=== PATIENT | male | born 1950 | race Caucasian/White ===

== ENCOUNTER 2022-01-04 09:48 | Inpatient (IN) | payer MEDICARE, OTHER ==
[~2022-01-04] VITALS: Ht 165.1 cm; Wt 72.7 kg
[2022-01-04 10:11] LABS: BASOPHILS ABSOLUTE AUTO 0.04 K/mm3 (0.00-0.23); BASOPHILS PERCENT AUTO 0 % (0-2); EOSINOPHILS ABSOLUTE AUTO 0.44 K/mm3 (0.00-0.68); EOSINOPHILS PERCENT AUTO 3 % (0-6); Hematocrit 36.1 % (37.0-53.0); Hemoglobin 12.8 g/dL (13.5-17.5); IMMATURE GRAN PERCENT AUTO 1 % (0-1); LYMPHOCYTES ABSOLUTE AUTO 1.78 K/mm3 (0.84-5.20); LYMPHOCYTES PERCENT AUTO 13 % (21-46); MONOCYTES ABSOLUTE AUTO 1.22 K/mm3 (0.16-1.47); MONOCYTES PERCENT AUTO 9 % (4-13); Mean Corpuscular HGB 33.6 pg (26.0-34.0); Mean Corpuscular HGB Conc 35.5 g/dL (31.5-36.5); Mean Corpuscular Volume 95 fL (80-100); Mean Platelet Volume 8.4 fL (9.1-12.4); NEUTROPHILS ABSOLUTE AUTO 10.51 K/mm3 (1.96-9.15); NEUTROPHILS PERCENT AUTO 75 % (41-73); Platelet Count 352 K/mm3 (150-400); RDW Coefficient Variation 13.2 % (11.7-14.2); RDW Standard Deviation 45.2 fL (35.1-46.3); Red Blood Cell Count 3.81 M/mm3 (4.30-5.90); White Blood Cell Count 14.09 K/mm3 (4.00-11.30)
[2022-01-04 10:20] LABS: PCO2 Arterial 35.6 mmHg (35-45); PO2 Arterial 80.9 mmHg (80-100); pH Blood Arterial 7.46 (7.35-7.45)
[2022-01-04] MEDS ORDERED: ATORVASTATIN CA20 MG PO (10:25)
[2022-01-04] MEDS ORDERED: PAXIL PO (10:25)
[2022-01-04] MEDS ORDERED: ROPINIROLE HCL1 MG PO (10:26)
[2022-01-04] MEDS ORDERED: OMEP20ER PO (10:26)
[2022-01-04 10:28] LABS: Bun/Creatinine Ratio 17.1 (12.0-20.0); Calcium, Blood 8.7 mg/dL (8.5-10.1); Creatinine, Blood 0.88 mg/dL (0.60-1.20); Potassium, Blood 3.7 mmol/L (3.5-5.5)
[2022-01-04 11:07] LABS: Influenza A, PCR NEGATIVE (NEGATIVE); Influenza B, PCR NEGATIVE (NEGATIVE); Resp Syncytial Virus, PCR NEGATIVE (NEGATIVE); SARS-Cov-2 (COVID-19) PCR, MMC NEGATIVE (NEGATIVE)
--- NOTE | 2022-01-04 17:19 | NUR ---
SHIFT SUMMARY: PATIENT A&OX4. PLEASANT AND COOPERATIVE WITH CARE. DENIES CP/CHEST DISCOMFORT. LUNGS WHEZEES T/O. SOB AND DESATS WITH ACTIVITIES. ON O2 8L VIA OXYMIZER WITH SPO2 ABOVE 90%. USES URINAL IN BED INDEPENDENTLY. SKIN INTACT. INFUSING NS AT 150. USES CALL LIGHT APPROPRIATELY. VITAL SIGNS REVIEWED. BED IN LOWEST POSITION, LOCKED AND CALL LIGHT WITHIN REACH.
[2022-01-05 04:24] LABS: PCO2 Arterial 32.1 mmHg (35-45); PO2 Arterial 76.5 mmHg (80-100); pH Blood Arterial 7.44 (7.35-7.45)
[2022-01-05 05:05] LABS: Hematocrit 30.8 % (37.0-53.0); Hemoglobin 10.9 g/dL (13.5-17.5); Mean Corpuscular HGB 34.8 pg (26.0-34.0); Mean Corpuscular HGB Conc 35.4 g/dL (31.5-36.5); Mean Corpuscular Volume 98 fL (80-100); Mean Platelet Volume 8.6 fL (9.1-12.4); Platelet Count 259 K/mm3 (150-400); RDW Coefficient Variation 13.2 % (11.7-14.2); RDW Standard Deviation 45.9 fL (35.1-46.3); Red Blood Cell Count 3.13 M/mm3 (4.30-5.90); White Blood Cell Count 17.25 K/mm3 (4.00-11.30)
--- NOTE | 2022-01-05 05:43 | NUR ---
SHIFT SUMMARY PATIENT IS ALERT AND ORIENTED. PATIENT STARTED SHIFT ON NONREBREATHER 11L. PATIENT HAS PROGRESSIVELY NEEDED ADDITIONAL OXYGEN. PATIENT IS CURRENTLY ON AIRVO 80 PERCENT, 60 LITERS, SATTING 88-92. THIS RN AND RT HAS BEEN WITH PATIENT MOST OF SHIFT. VITAL SIGNS REVIEWED. PATIENT HAS NOT COMPLAINED OF PAIN, NAUSEA OR VOMITTING. PATIENT HAS COMPLAINED OF SOB. BED IN LOWEST AND LOCKED POSITON. CALL LIGHT IN PLACE. WILL MONITOR UNTIL SHIFT CHANGE.
--- NOTE | 2022-01-05 08:05 | NUR ---
PATIENT TRANSFERRED TO PCU 14, REPORT CALLED BY SECUR[facility]PER[facility] ANALYST NURSE. TRANSFERRED WITH HIGH FLOW 02 AND 15L ON A NRB, SATS REMAINED >90% DURING TRANSFER. BEDSIDE NURSE RODNEY DENIES ANY FURTHER QUESTIONS. BELONGINGS SENT WITH PATIENT.
[2022-01-05 17:09] LABS: Source, Urine Foley catheter
[2022-01-05 17:28] LABS: Appearance, Urine Hazy (Clear); Bilirubin, Urine Neg (Neg); Blood, Urine 2+ (Neg); Color, Urine Yellow (P-Yellow); Glucose Qualitative, Urine Neg (Neg); Ketones, Urine Neg (Neg); Leukocyte Esterase, Urine Neg (Neg); Nitrite, Urine Neg (Neg); Protein, Urine 2+ (Neg); Urobilinogen, Urine NORM (Normal)
--- NOTE | 2022-01-05 18:04 | NUR ---
PT SUMMARY: PT WAS TRANSFERRED FROM THE [facility] AFTER SHIFT CHANGE PT ARRIVED WITH MAX OUT HIFLO REGULAR NASAL CANNULA AND NON REBREATHER MASK ON TOP PT IS ALERT AND ORIENTED X4 VITALS HRR SR 80'S SATS 90-92% ON AIRVO SETTINGS 50L 85%FIO2, RESPIRATORY THERAPIST SET UP THE NONREBREATHER MASK AT BEDSIDE FOR PT TO USE FOR RECOVERY IF PT GETS SHORT OF BREATH AND STARTS DESATTING. PT HAS BEEN CONTINENT USES URINAL FOR VOIDING, PT HAD MULTIPLE EPISODES OF DESATTING TO LOW 80'S WITH EXERTION LIKE USING THE URINAL, COUGHING SPITS OR EATING, PT WAS INSTRUCTED TO PUT ON NON REBREATHER MASK BEFORE USING URINAL AND PT WAS COMPLIANT STILL WILL DESAT TO 87%, PT WAS ALSO GIVEN COUGH MEDICINE AND WAS HELPFUL PER PT. AT AROUND 1700 PT DESATS TO 57-60% AFTER USING THE URINAL PT HAS THE NON REBREATHER MASK ON, ON TOP OF THE AIRVO, AIRVO WAS MAXED OUT TO 100% RT WAS CALLED PT WAS TAKING LONGER TO RECOVER WAS NOT ABLE TO CATCH HIS BREATH. RT MAXED OUT NON REBREATHER AND AIRVO SETTINGS. DR COOL WAS CALLED ORDER RECEIVED TO PLACE SOTELO, CONSULT LITIGATION MANAGER AND INTESIVIST TO TRANSFER PT TO ICU. D DIMER ALSO WAS DRAWN CAME BACK ELEVATED. DR HUGHES IN THE PT'S ROOM AT THIS TIME EVALUATING THE PT. WILL GIVE REPORT TO ICU NURSE WHEN PT IS TRANSPORTED.
[2022-01-05 18:32] LABS: Bacteria Few /hpf; Squamous Epithelial Cells Rare /hpf (Few); White Blood Cells, Urine 0-2 /hpf (0-5)
[2022-01-05 18:33] LABS: Hyaline Casts 0-2 /lpf (0-2); Mucus Light (0-Heavy)
--- NOTE | 2022-01-05 19:00 | NUR ---
TRANSPORT TO CT AND ICU PT TRANSPORTED TO CT AT 1900 WITH THIS RN, TAYLOR PCT, AND ADDIE RT. PT TOLERATED WELL. PT ON BIPAP 28/10 WITH FIO2 65%. RR 30S-40S, SPO2 >93%. PT EXPRESSES FEELING SHORT OF BREATH BUT STS IT IS IMPROVING AND HE ALWAYS "FEELS A LITTLE SHORT OF BREATH". BILATERAL UPPER LOBES CLEAR, RLL CLEAR, LLL COARSE. NSR ON MONITOR WITH RATE IN 80S. BP STABLE WITH MAP >65 AND PT HAS STRONG PULSES. ABDOMEN SOFT, BOWEL TONES HYPOACTIVE. DENIES DISCOMFORT WITH PALPATION. SOTELO PATENT AND DRAINING URINE TO GRAVITY. PT APPEARS PALE, CLAMMY SKIN. TEMPORAL TEMP 99.2. PT DENIES PAIN AT THIS TIME. CALL LIGHT AND CELL PHONE WITHIN REACH. SEE SHIFT ASSESSMENT.
[2022-01-06 04:11] LABS: BASOPHILS ABSOLUTE AUTO 0.03 K/mm3 (0.00-0.23); BASOPHILS PERCENT AUTO 0 % (0-2); EOSINOPHILS PERCENT AUTO 1 % (0-6); Hemoglobin 10.9 g/dL (13.5-17.5); IMMATURE GRAN ABSOLUTE AUTO 0.09 K/mm3 (0.00-0.10); IMMATURE GRAN PERCENT AUTO 1 % (0-1); LYMPHOCYTES ABSOLUTE AUTO 1.52 K/mm3 (0.84-5.20); LYMPHOCYTES PERCENT AUTO 9 % (21-46); MONOCYTES PERCENT AUTO 6 % (4-13); Mean Corpuscular HGB 33.9 pg (26.0-34.0); Mean Corpuscular HGB Conc 35.2 g/dL (31.5-36.5); Mean Corpuscular Volume 96 fL (80-100); Mean Platelet Volume 9.2 fL (9.1-12.4); NEUTROPHILS ABSOLUTE AUTO 13.66 K/mm3 (1.96-9.15); NEUTROPHILS PERCENT AUTO 83 % (41-73); Platelet Count 236 K/mm3 (150-400); RDW Standard Deviation 44.9 fL (35.1-46.3); Red Blood Cell Count 3.22 M/mm3 (4.30-5.90)
[2022-01-06 04:30] LABS: Bun/Creatinine Ratio 22.1 (12.0-20.0); Calcium, Blood 7.9 mg/dL (8.5-10.1); Creatinine, Blood 0.68 mg/dL (0.60-1.20); Magnesium, Blood 2.5 mg/dL (1.6-2.4); Phosphorus, Blood 2.4 mg/dL (2.5-4.9); Potassium, Blood 3.9 mmol/L (3.5-5.5)
--- NOTE | 2022-01-06 06:16 | NUR ---
SHIFT SUMMARY PT REMAINS ON BIPAP 28/10 WITH 65% FIO2. RR FLUCTUATES BETWEEN 20S-40S. PT CONTINUES TO FEEL SLIGHTLY SOB BUT STS IT HAS IMPROVED. SPO2 >94%. PT BECOMES MORE DYSPNEIC DURING PROLONGED CONVERSATION AND ACTIVITY. SOTELO PATENT AND DRAINING KELL URINE TO GRAVITY WITH SHIFT OUTPUT OF 850ML. VSS THROUGHOUT SHIFT. WILL REPORT TO ONCOMING RN.
--- NOTE | 2022-01-06 10:40 | NUR ---
Pt. is awake in bed and welcomes my visit. Pt. had just had visit from his spouse and their spinner cap frame. Pt. is pleasant, but unsettled by the progressive nature of his lung disease. Listen empathetically with a calming presence. Pt. displayed evidence of being very alert and engaged. Ptl is a man of veronica, and we prayed together. Pt. verbalized gratitude for the spiritual care visit. Will remain available to Pt. and family.
--- NOTE | 2022-01-06 12:28 | NUR ---
REASSESSMENT PT HAS BEEN RESTING IN BED THROUGHOUT THE MORNING. SWITCHED PT TO HI FLOW NC THIS MORNING AND HE HAS TOLERATED IT WELL AND REMAINS ON IT. LUNGS ARE CLEAR, BUT VERY DIM. NON PRODUCTIVE COUGH. SINUS TACH IN THE LOW 100S, BP STABLE. PT DOESN'T HAVE MUCH OF AN APPETITE BUT WAS ABLE TO DRINK AN ENSURE AND SOME MILK. HIS WORK OF BREATHING INCREASES A BIT WITH DRINKING, BUT PT IS VERY GOOD ABOUT GOING SLOW AND TAKING HIS TIME. SOTELO DRAINING DARK YELLOW URINE, CLEAR. CONTINUING TO MONITOR.
--- NOTE | 2022-01-06 16:46 | NUR ---
SHIFT SUMMARY PT HAS CONTINUED REQUIRING HIGH AMOUNTS OF OXYGEN. HE TOLERATED THE HIGH FLOW NC WITH 60L AND 75% UNTIL ABOUT 1400 THIS SHIFT. HE THEN STARTED DESATURATING TO THE 70S WITH MINIMAL MOVEMENT AND COUGHING SPELLS. PT SWITCHED BACK TO BIPAP 14/7 AND 70% FIO2 WITH SPO2 CURRENTLY AT 91%. RR REMAINS IN THE 30S AND 40S IT HAS BEEN THROUGHOUT THE SHIFT. HIS LUNGS REMAIN CLEAR BUT VERY DIM. ALERT AND ORIENTED. SR, BP STABLE. SOTELO WITH 350ML OF DARK YELLOW URINE. STILL MINIMAL APPETITE. PT IS MOVING HIMSELF AROUND IN BED/ CONTINUING TO MONITOR.
--- NOTE | 2022-01-06 19:16 | NUR ---
ASSESSMENT/ASSUMED CARE PT SITTING UP IN BED WATCHING TV WITH HIFLOW NC ON. PT A&O. FOLLOWING INSTRUCTIONS. C/O PAIN 6/10 TO LEFT LUNG WITH DEEP BREATHS AND COUGHING. WILL CHECK ON PAIN MEDS. LUNGS DECREASED WITH EXP WHEEZES. HIFLOW O2 60 LITERS 85%. RESP 24-26. LABORED WITH MOVEMENT, DEEP BREATHING AND COUGHING. SPO2 94%, BUT DECREASES TO 89-90% WITH MOVEMENT. DOES RECOVER WITH REST. PRODUCTIVE COUGH WITH THICK/FROTHY YELLOW/WHITE SPUTUM, SAMPLE SENT TO LAB. HEART RATE SINUS 80-100'S WITH BBB. BP STABLE. NO EDEMA. MAEW. BT+ ABD SOFT AND NONTENDER. DENIES CHEST PAIN/PRESSURE OR N/V. IV TO LEFT AC LEAKING WHEN FLUSHED. DC'D INTACT. ERMIAS VINCENT TO PLACE NEW IV. SOTELO CATH PATENT DRAINING KELL/YELLOW URINE SMALL AMTS. RT TO BEDSIDE FOR UDN TX.
--- NOTE | 2022-01-06 20:05 | NUR ---
PAIN PT MED WITH TYLENOL FOR PAIN 6/10 TO LEFT LUNG.
--- NOTE | 2022-01-06 20:55 | NUR ---
REASSESSMENT AFTER PAIN MED PT SITTING UP IN BED, STATES,"THE TYLENOL REALLY HELPED. PAIN 05/27". SOTELO CATH AND HS CARE DONE. SOFIA UNDER PT CHANGED AND PT BOOSTED IN BED. TURNED TO LEFT WITH HOB UP. SPO2 DOWN TO 85% WITH MOVMENT BUT BACK TO TO 94% WITHIN MOMENTS WITH REST.
--- NOTE | 2022-01-06 23:30 | NUR ---
REASSESSMENT RT GAVE UDN TX VIA AIRVO. PT RESTING QUIETLY. RESP RATE 20-22. LUNGS CLEAR BUT DECREASED. PT STATES,"PAIN IS 2/10. THE TYLENOL SEEMED TO WORK. MY BREATHING FEELS BETTER ALSO". REPOSITIONED. URINE OUTPUT 100 ML DARK KELL/YELLOW URINE SINCE START OF NIGHT. 1200 ML OUT ON DAY SHIFT, WILL CONT TO MONITOR.
[2022-01-07 03:30] LABS: BASOPHILS ABSOLUTE AUTO 0.03 K/mm3 (0.00-0.23); BASOPHILS PERCENT AUTO 0 % (0-2); EOSINOPHILS ABSOLUTE AUTO 0.45 K/mm3 (0.00-0.68); EOSINOPHILS PERCENT AUTO 3 % (0-6); Hematocrit 30.4 % (37.0-53.0); Hemoglobin 10.5 g/dL (13.5-17.5); IMMATURE GRAN ABSOLUTE AUTO 0.08 K/mm3 (0.00-0.10); IMMATURE GRAN PERCENT AUTO 1 % (0-1); LYMPHOCYTES ABSOLUTE AUTO 1.19 K/mm3 (0.84-5.20); LYMPHOCYTES PERCENT AUTO 7 % (21-46); MONOCYTES ABSOLUTE AUTO 0.79 K/mm3 (0.16-1.47); MONOCYTES PERCENT AUTO 5 % (4-13); Mean Corpuscular HGB 32.1 pg (26.0-34.0); Mean Corpuscular HGB Conc 34.5 g/dL (31.5-36.5); Mean Corpuscular Volume 93 fL (80-100); Mean Platelet Volume 8.6 fL (9.1-12.4); NEUTROPHILS ABSOLUTE AUTO 14.66 K/mm3 (1.96-9.15); NEUTROPHILS PERCENT AUTO 85 % (41-73); Platelet Count 207 K/mm3 (150-400); RDW Coefficient Variation 12.9 % (11.7-14.2); RDW Standard Deviation 44.2 fL (35.1-46.3); Red Blood Cell Count 3.27 M/mm3 (4.30-5.90)
[2022-01-07 03:48] LABS: Albumin, Blood 2.1 g/dL (3.4-5.0); Albumin/Globulin Ratio 0.5 (0.8-1.8); Bilirubin, Total 0.7 mg/dL (0.1-1.0); Bun/Creatinine Ratio 32.1 (12.0-20.0); Calcium, Blood 7.7 mg/dL (8.5-10.1); Creatinine, Blood 0.56 mg/dL (0.60-1.20); Potassium, Blood 3.7 mmol/L (3.5-5.5); Total Protein, Blood 6.1 g/dL (6.4-8.2)
--- NOTE | 2022-01-07 05:54 | NUR ---
SHIFT SUMMARY PT RESTING QUIELTY. MED WITH TYLENOL ONCE DURING THE NIGHT FOR C/O PAIN TO LEFT LUNG WITH GOOD RESULTS. PT HAS BEEN SINUS RHYTHM WITH BBB. HEART RATE 80-100'S. BP STABLE. ON AIRVO AT 60 LITERS 85% UNITL 0030 WHEN PT WENT TO SLEEP AND HIS SPO2 DROPPE DOWN TO 88-89% AND RESP RATE INCREASED TO 30'S. PLACED ON BIPAP 14/7 RATE 14 FIO2 85%. SPO2 HAS REMAINED 94-96% ON BIPAP. POOR URINE OUTPUT DURING THE NIGHT 350ML DARK KELL/YELLOW URINE. PT TURNED Q2HRS. ASSISTING WITH TURNING. NEW IV 20G TO RIGHT AC PLACED. REPORT TO ON COMING NURSE
--- NOTE | 2022-01-07 07:10 | NUR ---
TOOK OVER CARE OF PT AT 0700, PT RESTING ON RA.
--- NOTE | 2022-01-07 07:11 | NUR ---
TOOK OVER CARE OF PT AT 0705. PT RESTING ON BIPAP14/7 85%, RR AT 35, SATS 96%.
--- NOTE | 2022-01-07 10:58 | NUR ---
Pt, is awake in bed and welcmoes my visit. Pt. is pleasant and verbalizes no concerns about his care. Pt. displays evidence of being a man of veronica, so matters of veronica, belief, and hope are discussed, and rapport is re-established. Pt. displays evidence of hope and peace. Prayed with Pt. Pt. verbalized gratitude for the spiritual care visit.
--- NOTE | 2022-01-07 14:21 | NUR ---
Spiritual Care. Escorted Pts. to the Pts. room. Re-established rapport with Pt. Pt. verbalized gratitude for the spiritual care visit.
--- NOTE | 2022-01-07 18:00 | NUR ---
SUMMARY NERUO; WNL CARDIAC: PT BEGAN SHIFT WITH A HR IN THE 80'-90'S, PT NOW 100'S-115'S. BP STABLE. PT COMPLAINING OF CP DURING EPISODES OF LOW SATURATIONS. GI: NO BM. : SOTELO IN PLACE. 450ML OUT THIS SHIFT. LUNGS: PT ON AIRVO 60L 85%. PT DESATTING WITH A SINGLE COUGH INTO THE 70'S AND TAKING UPWARDS OF FIVE MINUTED TO REACH 80%. ONCE IN THE 80'S PT REBOUNDS QUICKER. STEROIDS STARTED TODAY. LUNGS DIMINISHED BUT CLEAR. SPUTUM CULTURE CAME BACK POSITIVE. PT'S UPDATED ON CONDITION AND THEN CAME IN TO VISIT PT TODAY.
--- NOTE | 2022-01-07 19:34 | NUR ---
ASSUMED CARE. RECEIVED BEDSIDE REPORT. PT TACHYPNIC IN THE 30'S, DESATS WITH COVERSATION. ELBA RN RECAPPED DAYS COVERSATIONS REVIEWING THE PATIENTS REQUEST TO NOT BE INTUBATED AND THE CONCERNS OF HIS CONDITION. WE DISCUSSED USING BIPAP AND POSSIBLY GETTING SOME MEDS TO WHERE HE MIGHT TOLERATE IT BETTER. HR IS TACHY IN THE 110-120'S, SATS CONTINUE TO DROPS TO LOW 80'S. STATES LEFT SIDE PAIN STABBING TENDS TO INCREASE WITH DESATING. ASK FOR MORPHINE. ELBA DISCUSSED WITH PATIENT THAT SHE SPOKE TO HIS WELL ABOUT CONCERNS OF HIS HEART TIREING OUT. RT IS CURRENTLY IN THE ROOM WORKING WITH THE PATIENT ON BIPAP. SPOKE TO DR. GREEN REGARDING CONCERNS OF RECENT VITAL CHANGES, PAIN. ORDERS RECEIVED.
--- NOTE | 2022-01-07 21:51 | NUR ---
PT TOLERATING BIPAP WITH MORPHINE ON BOARD. PAIN IS 2/10. HIS ANXIETY HAS IMPROVED WITH WEARING IT SO FAR. WHEN ADMINISTERING MEDS HAD TO REMOVE BIPAP ONLY LONG ENOUGH FOR HIM TO TAKE 3 DRINKS OF WATER. HIS RESP INCREASED INTO THE 40'S, SATS DROPPED TO THE 50'S, AND HE BECAME VERY LABORED IN THAT SHORT PERIOD OF TIME. IT TOOK HIM ONLY A FEW MINUTES WITH BIPAP ON TO GET BACK INTO THE HIGH 80'S. CURRENTLY HE IS RUNNING 95%, ON 90% FIO2 WITH SETTINGS OF 7 OVER 10 ON BIPAP.
--- NOTE | 2022-01-08 00:51 | NUR ---
RT TOOK HIM OFF THE BIPAP TO GIVE HIM A BREAK. PLACED BACK ON AIRVO WITH 85%, SATS HAVE BEEN AVERAGE IN THE 88-89 RANGE. MORPHINE WAS GIVEN FOR PAIN IN THE LEFT SIDE. NOW QTC HAVE BEEN JUMPING UP INTO THE 530'S. HE IS RESTING GOOD.
[2022-01-08 04:34] LABS: BASOPHILS ABSOLUTE AUTO 0.01 K/mm3 (0.00-0.23); BASOPHILS PERCENT AUTO 0 % (0-2); EOSINOPHILS PERCENT AUTO 0 % (0-6); Hematocrit 28.7 % (37.0-53.0); Hemoglobin 9.8 g/dL (13.5-17.5); IMMATURE GRAN ABSOLUTE AUTO 0.09 K/mm3 (0.00-0.10); IMMATURE GRAN PERCENT AUTO 1 % (0-1); LYMPHOCYTES ABSOLUTE AUTO 0.55 K/mm3 (0.84-5.20); LYMPHOCYTES PERCENT AUTO 4 % (21-46); MONOCYTES ABSOLUTE AUTO 0.26 K/mm3 (0.16-1.47); MONOCYTES PERCENT AUTO 2 % (4-13); Mean Corpuscular HGB 32.3 pg (26.0-34.0); Mean Corpuscular HGB Conc 34.1 g/dL (31.5-36.5); Mean Corpuscular Volume 95 fL (80-100); Mean Platelet Volume 9.4 fL (9.1-12.4); NEUTROPHILS ABSOLUTE AUTO 13.38 K/mm3 (1.96-9.15); NEUTROPHILS PERCENT AUTO 94 % (41-73); Platelet Count 195 K/mm3 (150-400); RDW Coefficient Variation 12.7 % (11.7-14.2); RDW Standard Deviation 43.6 fL (35.1-46.3); Red Blood Cell Count 3.03 M/mm3 (4.30-5.90); White Blood Cell Count 14.29 K/mm3 (4.00-11.30)
[2022-01-08 04:53] LABS: Calcium, Blood 7.5 mg/dL (8.5-10.1); Creatinine, Blood 0.64 mg/dL (0.60-1.20); Potassium, Blood 3.9 mmol/L (3.5-5.5)
--- NOTE | 2022-01-08 05:55 | NUR ---
SHIFT SUMMARY: RESPIRTORY STATUS VERY FRAGILE TONIGHT. HE HAS NEEDED BIPAP 90% OF THE TIME WITH RATE 7/10 WITH FIO2 90-100%. BREATHING IS VERY SHALLOW TACHYPENIC IN THE 30-40'S. ITS BEEN DIFFICULT TO MAINTAN SATS ABOVE 90%. ON AVERAGE HE IS 88% WITH BIPAP. HE WAS ONLY ON AIRVO FOR A COUPLE OF HOURS BEFORE HE REQUIRED BIPAP. HE HAS RECEIVED SHORT BREAKS FOR FLUID INTAKE. JUST A FEW MINUTES AGO HE WAS TAKING A DRINK WHEN HE STARTED TO HAVE A COUGHING SPASM. THIS CAUSED HIM TO VOMIT, EVENTUALLY LEADING TO ASPIRATION AND AIRWAY OCCLUTION. SATS DROPPED TO 30'S, HE PASSED OUT FOR A FEW SECONDS BEFORE BEING ABLE TO GET HIS AIRWAY CLEAR AND TAKE BREATHS FROM HIS BIPAP. HE DOES NOT TOLERATE THE BIPAP OR AIRVO TO BE OFF FOR MORE THEN 30 SECONDS WITHOUT A FAST DROP TO THE 70'S. HE IS AWARE OF THE SERIOUSNESS OF HIS CONDITION. TACHYCARDIC MOST OF THE NIGHT IN THE 110-120'S. RECEIVED 500CC BOLUS AND IS ON MAINTANCE FLUIDS AT 75ML/HR. BLOOD PRESSURE WAS SOFT IN THE 90'S-110'S SYSTOLIC. NOW RATE IS THE 80-90'S. HIS QTC CONTINUES TO GO UP TO 530. HE IS STILL COMPENSATING. HYPOACTIVE BT, NO BM. APPETITE IS POOR DUE TO AIR HUNGER. URINE IS DARK WITH 1000CC OUTPUT THIS SHIFT. MORPHINE ORDERED AND 2MG WAS GIVEN TWICE WHICH HAS HELPED. IS SUPPOSE TO BE HERE TODAY, COMFORT CARE SHOULD BE DISCUSSED. HE IS CURRENTLY RUNNING 96% SATS ON BIPAP FIO2 OF 100%. WILL INFORM DAYSHIFT RN.
--- NOTE | 2022-01-08 07:28 | NUR ---
ASSUMPTION OF CARE PT RESTING ON BIPAP 28/10 100%
--- NOTE | 2022-01-08 12:26 | NUR ---
Additional contacts Customer Greeter Lonnie Tolentino [phone] and his , Jordyn Tolentino [phone] are helping pt/ with extra support for pt's . [facility] Care referral received today. EMR reviewed and case conferenced with pt's clinical services specialist before visiting in ICU #10. Pt is 71 year old with recent hx of ILD/Idiopathic pulmonary fibrosis dx in past two years. Pt currently admitted for worsening maricarmen pneumonia, worse on Left, sepsis and hypoxic resp failure. He was resting with eyes closed. He quickly opened eyes once I was at bedside. He is on 100% via airvo currently, dyspnic with short conversation. He reports what he believes is "heart" discomfort from "having to work so hard to breath". He states he is not feeling anxious currently and he verbalizes understanding of extensive conversation he had with Dr Wesley parrish: his chronic lung disease and prognosis. He doesn't have any questions at this time about that. I asked if he had additional family and friends locally that could help support him/. He states his Customer Greeter at [facility], Lonnie Tolentino and his Jordyn are helping and will look after his . I asked if he would like us to try to arrange a visit from his and he stated yes. After clearing with pt's RN, phone calls made to Lonnie and Jordyn. Voice mails left for both requesting a call back regarding having pt's and/or them in for a visit today. Lonnie returned call and stated he would try to get in for a visit this afternoon. He had already planned to visit himself.
--- NOTE | 2022-01-08 13:00 | NUR ---
ASSUMED CARE PT IS ALERT AND ORIENTED X4. COMFORTABLE, BUT HAS 2/10 PLEURAL PAIN; TOLERABLE TO PT. FAMILY AT BEDSIDE.
--- NOTE | 2022-01-08 18:25 | NUR ---
SHIFT SUMMARY PT IS ALERT AND ORIENTED X4. SPO2 >92% ON 60L AND 100% FIO2 AIRVO. PT DESATS WHILE COUGHING AND WILL DESAT DOWN TO THE 80S FOR A WHILE. MAP >65 PT HAD FAMILY IN THE ROOM. HE HAS CHEST PAIN WITH INSPIRATION THAT IS MANAGED WELL BY 2MG MORPHINE. PT HAS POOR APPETITE AND ONLY WANTED "COLD LIQUIDS".
--- NOTE | 2022-01-08 20:35 | NUR ---
ASSUMED CARE. GILMA APPEARS TO BE FEELING BETTER BUT HAS HAD SEVERAL COUGHING SPELLS THAT HAS CAUSED HIS SATS TO DROP IN THE 50'S. RT HAS BEEN WORKING WITH HIM HE DOES NOT LIKE WEARING THE BIPAP. HE CONTINUES TO TALK ABOUT JUST WANTING TO BE COMFORTABLE. JOHN RT AND I DISCUSSED DIFFERENCE BETWEEN COMFORT MEASURES AND NOT. CURRENTLY HE IS ON AIRVO 60L/100% FIO2 AND NON-REBREATHER AT 10-15L FOR RECOVERY WHEN HE HAS COUGHING SPELLS. LS DIMINISHED, DOES GET LABORED AT TIMES. SATS ARE 87-90%. SPOKE WITH DR. GREEN REGARDING PLAN OF CARE AND NEED FOR COUGH SURPRESSANT. PLAN IS TO GIVE ANTIBOTICS TIME TO WORK THEN BY MONDAY OR MONDAY REASSESS SITUATION. REGARDING BIPAP USE, DR. GREEN STATES IT IS UP TO THE PATIENT IF TO USE IT NOT TO PUSH IT DISPITE SATS DROPPING. DISCUSSED THIS WITH GILMA HE AGREED. CALL LIGHT IN REACH.
--- NOTE | 2022-01-08 22:00 | NUR ---
BED BATH GIVEN CAREFULLY. GAVE PHENERGAN WITH CODEINE PRIOR TO PREVENT COUGHING SPELL. THIS HELPED DURING THE BATHING PROCESS AND MOVING AROUND. HE WAS TURNED FROM SIDE TO SIDE JUST TO PUT FRESH LINEN ON. JUST LAYING HIM DOWN FOR A FEW MINUTES HIS SATS DROPPED TO THE 70'S. WITH THE NON-REBREATHER OVER THE AIRVO, IT TOOK 5 MINUTES TO GET HIM BACK ABOVE 90 AND MAINTAINING IT. MEDS WERE GIVEN ONE AT A TIME WITH SMALL SIPS OF WATER. RESTING CURRENTLY.
[2022-01-09 03:28] LABS: BASOPHILS ABSOLUTE AUTO 0.02 K/mm3 (0.00-0.23); BASOPHILS PERCENT AUTO 0 % (0-2); EOSINOPHILS PERCENT AUTO 0 % (0-6); Hematocrit 28.2 % (37.0-53.0); Hemoglobin 9.9 g/dL (13.5-17.5); IMMATURE GRAN PERCENT AUTO 1 % (0-1); LYMPHOCYTES ABSOLUTE AUTO 0.88 K/mm3 (0.84-5.20); LYMPHOCYTES PERCENT AUTO 4 % (21-46); MONOCYTES ABSOLUTE AUTO 0.85 K/mm3 (0.16-1.47); MONOCYTES PERCENT AUTO 4 % (4-13); Mean Corpuscular HGB 32.6 pg (26.0-34.0); Mean Corpuscular HGB Conc 35.1 g/dL (31.5-36.5); Mean Corpuscular Volume 93 fL (80-100); Mean Platelet Volume 9.4 fL (9.1-12.4); NEUTROPHILS ABSOLUTE AUTO 22.22 K/mm3 (1.96-9.15); NEUTROPHILS PERCENT AUTO 92 % (41-73); Platelet Count 211 K/mm3 (150-400); RDW Coefficient Variation 12.8 % (11.7-14.2); RDW Standard Deviation 43.5 fL (35.1-46.3); Red Blood Cell Count 3.04 M/mm3 (4.30-5.90); White Blood Cell Count 24.17 K/mm3 (4.00-11.30)
[2022-01-09 03:51] LABS: Albumin/Globulin Ratio 0.5 (0.8-1.8); Bilirubin, Total 0.3 mg/dL (0.1-1.0); Bun/Creatinine Ratio 26.6 (12.0-20.0); Calcium, Blood 7.8 mg/dL (8.5-10.1); Creatinine, Blood 0.68 mg/dL (0.60-1.20); Potassium, Blood 3.5 mmol/L (3.5-5.5)
--- NOTE | 2022-01-09 06:09 | NUR ---
SHIFT SUMMARY. RESPIRTORY STATUS CONTINUES TO BE FRAGILE. HE HAS MAINTAINED SATS ON AIRVO OF 60L FIO2 100% PLUS NON-REBREATHER OF 15L OVER THE TOP. SATS AVERAGE 87-90 ON AVERAGE. COUGHING SPELLS HAVE DECREASED TONIGHT EVEN THOUGH HE ONLY HAD 1 DOSE OF CODEINE TONIGHT. HE CONTINUES TO DEVELOP CHEST PAIN THAT HAS INCREASED TO A 9/10 FROM THE 6 HE WAS HAVING THE PREVIOUS NIGHTS. LS DIMINISHED. COUGH IS PRODUCTIVE, SUCTION AT BEDSIDE. HE HAS SLEPT WELL MOST OF THE NIGHT UNTIL NOW WHERE HE HAD TO BE PLACED BACK ON THE BIPAP DUE TO A COUGHING SPELL CAUSING THIM TO SPIRAL DOWN TO THE 60'S ON SATS. RT IS CURRENTLY IN THE ROOM WORKING WITH HIM. AWAITING THE CODEINE FROM PHARMACY.
--- NOTE | 2022-01-09 08:06 | NUR ---
CARE OF PT ASSUMED AT 0700, BEDSIDE REPORT TAKEN. PT ON BIPAP W SOME LABORED RESP.30'S. SATS >90% 28/10 AT 100% FIO2. AT APPROX. 0740 PT IN ACUTE RESP DISTRESS, SATS IN LOW 70'S, RESP LABORED IN 40-50'S. PT CRYING "I CANT BREATH". RT BROUGHT OVER IMMEDIATELY. DR GREEN CALLED AND UPDATED. 0.5-1MG ATIVAN ORDERED. 0.5MG GIVEN W GOOD EFFECT. PT CALM AND RELAXED NOW ON BIPAP. RT CHANGED SETTING TO 28/01. SATS 92%, RATE 20-30'S.
--- NOTE | 2022-01-09 08:09 | NUR ---
ASSUMED CARE PT IS ON BIBAP W/ SPO2 >92% RESP. 30'S 14 AT 100% FIO2; MAP >65. PT IS EXPERIENCING INCREASED DYSPNEA STARTING EARLY THIS MORNING PER REPORT. PT IN ACUTE RESP DISTRESS AROUN 0740 WITH SATS IN LOW 70'S. RR IN THE 40-50'S. PT STATED SEVERAL TIMES "I CAN'T BREATHE" "I'M PANICKING". DR GREEN CALLED BY ALBIN VINCENT AND 0.5-1MG ATIVAN ORDERED. 0.5MG GIVEN; PT IS NOW RELAXED AND TOLERATING BIPAP WELL. SATS 92%, RATE IN THE 20-30'S. RT CHANGED SETTINGS TO 28/01.
--- NOTE | 2022-01-09 08:48 | NUR ---
PT DESATURATED INTO 70'S, RESP RATE HIGH 40'S, PT FEELING EXTREMELY SOB, SEVERE ANXIETY RELATED TO AIR HUNGER. RT CALLED AND AT BEDSIDE. MS 2MG GIVEN. LABORED BREATHING CONT'S BUT PT MORE CALM, SATS 93%.
--- NOTE | 2022-01-09 10:10 | NUR ---
Visit made to bedside with pt's nurses after case conference with pts instrumentation supervisor and nurses. Pt's resp status has declined since my visit yesterday. He was able to enjoy a visit from his and corporate real estate specialist yesterday afternoon. Goal for today is to get him as much rest as possible in preparation for another visit with pt's later today. was updated by this am re: pt's decline and poor prognosis. He had a very difficult morning again with desaturations into the 70's with coughing after an attempt to have a sm sip of water. Pt's chief c/o is profound fatigue, dyspnea/bipap dependent and dry mouth. RN to provide oral care and moisturizing. Plan to return as needed when family arrives later today.
--- NOTE | 2022-01-09 10:32 | NUR ---
UPDATE PLAN WAS MADE WITH DR COOL AND PT'S TO ATTEMPT TO CONTINUE CARE W/ A PRIORITY ON COMFORT. DR COOL UPDATED DR GREEN AND PT AGREE'S WITH PLAN. CURRENTLY HAS FAMILY IN ROOM. PT HAD 30 SECONDS OF ORAL CARE WITH NON-REBREATHER AND DESATTED DOWN TO THE 80S, BUT RECOVERED QUICKLY WHEN BIPAP WAS PUT BACK ON.
--- NOTE | 2022-01-09 12:54 | NUR ---
DR GREEN AT BEDSIDE FOR EXTENDED AMT OF TIME, SPEAKING W PT AND PT'S FAMILY INCLUDING FAMILY. FAMILY WOULD LIKE TO TRANSITION TO COMFORT CARE, GENEVIEVE WITH PALLIATIVE CARE CALL AND SPOKE WITH FAMILY WELL. COMFORT CARE ORDERS TO BE PLACED.
--- NOTE | 2022-01-09 12:57 | NUR ---
Nursing notified me that and additional family members had arrived. Visit made to confirm how pt/family would like us to proceed. Pt and both indicate that they would like us to transition him to comfort care so he can remove his bipap and be supported with medications for comfort.
--- NOTE | 2022-01-09 15:33 | NUR ---
UPDATE PT COMFORT CARE W/ FAMILY AT BEDSIDE. PT PLACED ON AIRVO BY RT. MEDICATED FOR PAIN/DYSPNEA. PT COMFORTABLE.
--- NOTE | 2022-01-09 19:27 | NUR ---
SHIFT SUMMARY PT IS ON AIRVO 60LPM, FiO2 100%. PT STATES HE DOESNOT WANT TO BE PUT BACK ON BIPAP. HE HAS ANXIETY RELATED TO AIR HUNGER, WHICH IS RELIEVED BY 10MG ROXANAL. PT HAS MANY SUPPORTIVE FAMILY MEMBERS PRESENT IN ROOM.
--- NOTE | 2022-01-09 19:30 | NUR ---
PT RECEIVED 10MG ROXANOL FOR AIR HUNGER. HE IS ABLE TO MOVE IN BED INDEPENDENTLY. FAMILY IS SUPPORTIVE AT BEDSIDE.
--- NOTE | 2022-01-10 00:32 | NUR ---
0020 PT DECIDED TO TAKE AIRVO OFF. PT STS HE IS READY TO PASS. FAMILY AT BEDSIDE. CALLED RT AND SPOKE WITH CHARGE NURSE. 0030 20 MG ROXANOL GIVEN FOR COMFORT FOR PT REQUEST. PT IS APPEARS PALE AT THIS TIME, STRUGGLING TO BREATH. WILL CONTINUE TO MONITOR AND WILL ALLOW FAMILY IN ROOM
--- NOTE | 2022-01-10 03:18 | NUR ---
0120 PT'S FAMILY LEFT THE ROOM AND WENT HOME CALLED AND NOTIFIED DR. HUBER 0130 IV ON R AC DC'D, CATH INTACT AND SOTELO WAS DC'D WELL 0250 MORTUARY CAME IN TO VALVE PIPE IRRIGATOR PATIENT.
== END 2022-01-10 01:10 | DRG 871 ==
LOC: ER 09:48 → ICUW 12:09 → MEDS 12:09 → PCU 01-05 08:05 → ICUW 01-05 19:17 → MEDS 01-09 16:06
PROVIDERS: Internal Medicine; Internal Medicine Critical Care Medicine; Nurse Practitioner Acute Care; Student in an Organized Health Care Education/Training Program; ADMIT Internal Medicine
PROC: 3E03329 Introduction of Other Anti-infective into Peripheral Vein, Percutaneous Approach (ICD-10-PCS; principal; 2022-01-04)
PROC: 0T9B70Z Drainage of Bladder with Drainage Device, Via Natural or Artificial Opening (ICD-10-PCS; 2022-01-05)
PROC: 5A09457 Assistance with Respiratory Ventilation, 24-96 Consecutive Hours, Continuous Positive Airway Pressure (ICD-10-PCS; 2022-01-05)
DX: A41.9 Sepsis, unspecified organism (principal); J18.9 Pneumonia, unspecified organism; J96.01 Acute respiratory failure with hypoxia; I45.10 Unspecified right bundle-branch block; Z51.5 Encounter for palliative care; Z66 Do not resuscitate; Z20.822 Contact with and (suspected) exposure to COVID-19; R65.20 Severe sepsis without septic shock; J84.112 Idiopathic pulmonary fibrosis; E78.5 Hyperlipidemia, unspecified; K21.9 Gastro-esophageal reflux disease without esophagitis; F41.9 Anxiety disorder, unspecified; Z87.891 Personal history of nicotine dependence; Z79.899 Other long term (current) drug therapy; R77.8 Other specified abnormalities of plasma proteins
CPT/HCPCS: 0241U; 36415; 36600; 51703; 71045; 71260; 80048; 80053; 81001; 82803; 83605; 83735; 83880; 84100; 84484; 85025; 85027; 85379; 87040; 87070; 87205; 93005; 93010; 94640; 94660; 94664; 94760; 94762; 96365; 99285-25; A9270; J0456; J0696; J1650; J1885; J1940; J1956; J2060; J2270; J2920; J7030; J7040; J7042; J7050; J7060; Q9967